=== PATIENT | male | born 1990 | race Caucasian/White ===

== ENCOUNTER → 2020-04-17 | Outpatient (CLI) | payer OTHER ==
[2020-04-18 13:33] LABS: FREE T4 1.23 ng/dL (0.76-1.46)
[2020-04-18 13:34] LABS: CHOLESTEROL/HDL RATIO 5.3
[2020-04-18 13:49] LABS: T3 TOTAL 1.07 ng/mL
== END | disposition home or self-care (01) ==
LOC: LB 16:03
DX: E55.9 Vitamin D deficiency, unspecified (principal); E29.1 Testicular hypofunction
CPT/HCPCS: 82670; 82784; 83516; 84402; 84403; 84439; 86255

== ENCOUNTER → 2020-04-25 | Outpatient (CLI) | payer OTHER | END | disposition home or self-care (01) | LOC: LB 17:23 | DX: E55.9 Vitamin D deficiency, unspecified (principal); E29.1 Testicular hypofunction ==

== ENCOUNTER 2020-08-29 21:21 | Emergency (ER) | payer OTHER ==
[~2020-08-29] VITALS: Ht 170.2 cm; Wt 99.8 kg
[2020-08-29 21:34] VITALS: Ht 170.2 cm; Wt 99.8 kg
[2020-08-29 23:24] VITALS: BP 148/90
== END 2020-08-29 23:24 | disposition home or self-care (01) ==
LOC: ED 21:21
DX: T14.90XA Injury, unspecified, initial encounter (principal); E03.9 Hypothyroidism, unspecified; Z13.89 Encounter for screening for other disorder; Z88.0 Allergy status to penicillin; X58.XXXA Exposure to other specified factors, initial encounter; Y93.9 Activity, unspecified; Y92.89 Other specified places as the place of occurrence of the external cause; Y99.8 Other external cause status

== ENCOUNTER → 2020-08-29 | Outpatient (REF) | END | disposition home or self-care (01) | LOC: EH 06:17 | DX: Z20.828 Contact with and (suspected) exposure to other viral communicable diseases (principal) ==

== ENCOUNTER → 2020-10-04 | Outpatient (CLI) | payer OTHER | END | disposition home or self-care (01) | LOC: US 08:48 | PROC: BW40ZZZ Ultrasonography of Abdomen (ICD-10-PCS; principal; 2020-10-04) | DX: R14.0 Abdominal distension (gaseous) (principal) ==